=== PATIENT | female | born 1995 | race Caucasian/White ===

== ENCOUNTER 2024-01-10 11:07 | Emergency (ER) | payer OTHER, SELFPAY ==
[2024-01-10 11:09] VITALS: BP 140/83; PULSE 93; RESP 14; TEMP 36.9; O2SAT 97; BMI 35.6
[2024-01-10 11:18] VITALS: BP 140/83; PULSE 86; O2SAT 96
--- NOTE | 2024-01-10 12:12 | DI.CT.S_ITS ---
PROCEDURE: CT HEAD/BRAIN WO CON INDICATIONS: PAPILLEDEMA ON OPTOMETRY EXAM TECHNIQUE: Noncontrast 4.5 mm thick angled axial sections acquired from the foramen magnum to the vertex, with coronal and sagittal reformats. For radiation dose reduction, the following was used: automated exposure control, adjustment of mA and/or kV according to patient size. COMPARISON: None. FINDINGS: Image quality: Diagnostic. CSF spaces: Basal cisterns are patent. No extra-axial fluid collections. Ventricles are normal in size and shape. Brain: No midline shift. No intracranial masses or hemorrhage. Ledesma-white matter interface is normal. Skull and face: Calvarium and visualized facial bones are intact, without suspicious lesions. Sinuses: Visualized sinuses and mastoids are clear. IMPRESSION: No acute intracranial pathology. Dictated by: Zenia Escobedo MD, PhD on 01/10/2024 at 12:42 Approved by: Zenia Escobedo MD, PhD on 01/10/2024 at 12:43
--- NOTE | 2024-01-10 12:13 | ED.EYEPROB ---
HPI - Eye Problem General Chief complaint: Eye Problems Stated complaint: bilateral papilledema of optic discs Time Seen by Provider: 01/10/24 11:16 Source: patient Mode of arrival: Ambulatory History of Present Illness HPI Narrative: 28yoF with no significant PMH presents for evaluation of papilledema. Patient went to a routine eye appointment today at the [facility]. The managing director atlas incidentally noted bilateral papilledema and referred to the ER, requesting stat MRI with and without contrast as well as lumbar puncture with opening pressure. Patient states that this was a routine eye exam. She wears glasses at baseline and has not noticed any changes in her vision. Denies headaches, neck pain, other complaints at this time Related Data Allergies Allergy/AdvReac Type Severity Reaction Status Date / Time No Known Drug Allergies Allergy Verified 01/10/24 11:20 Patient History Social History Smoking Status: Unknown if ever smoked Smoking Status: Unknown if ever smoked alcohol intake frequency: holidays/special occasions only Substance Use Type: does not use Exam Initial Vital Signs Initial Vital Signs: Vital Signs Temperature 98.5 F 01/10/24 11:09 Pulse Rate 93 H 01/10/24 11:09 Respiratory Rate 14 01/10/24 11:09 Blood Pressure 140/83 01/10/24 11:09 Pulse Oximetry 97 01/10/24 11:09 Oxygen Delivery Method Room Air 01/10/24 11:09 Const: Awake, alert, no acute distress, nontoxic appearing Cardiac: regular rate, regular rhythm RESP: unlabored, clear bilaterally, no wheezing Skin: Warm, Dry, intact, no rashes Neuro: AO x3, CN II-XII grossly intact, moves all extremities Course Orders Ordered: ED Orders 01/10/24 12:12 CT head/brain wo con Stat Vital Signs Vital signs: Vital Signs - 8 hr 01/10/24 11:09 01/10/24 11:18 01/10/24 11:18 Temperature 98.5 F Pulse Rate 93 H 86 Respiratory Rate 14 Blood Pressure 140/83 140/83 Pulse Oximetry 97 96 Oxygen Delivery Method Room Air 01/10/24 12:36 01/10/24 12:53 Temperature Pulse Rate 79 84 Respiratory Rate 16 Blood Pressure 131/62 Pulse Oximetry 96 96 Oxygen Delivery Method Room Air MDM - Eye Problem MDM Narrative Medical decision making narrative: Patient referred by optometry office for papilledema found on routine eye exam. Patient states that she was felt in her usual state of health and this was a routine eye exam. Patient has no concerning neurologic symptoms. A noncontrast CT of the brain did not show any obvious abnormalities. No indication to obtain MRI imaging or lumbar puncture from the ER. Patient counseled to follow up with her PCM for further workup of papilledema. Red flag signs and symptoms and ED return precautions discussed at bedside. Discharge Plan Departure Patient Disposition: Home Clinical Impression: Unspecified papilledema Activity Restrictions/Additional Instructions: Your CT today is normal. Stand Alone Forms: Patient Portal/API
[2024-01-10 12:36] VITALS: PULSE 79; RESP 16; O2SAT 96
[2024-01-10 12:53] VITALS: BP 131/62; PULSE 84; O2SAT 96
== END 2024-01-10 13:03 | disposition home or self-care (01) ==
PROVIDERS: Emergency Provider Emergency Medicine
DX: H47.10 Unspecified papilledema (principal)
CPT/HCPCS: 70450; 99282; 99284